=== PATIENT | male | born 1970 | race Caucasian/White ===

== ENCOUNTER 2022-12-03 15:40 | Emergency (ER) | payer OTHER, SELFPAY ==
[2022-12-03 15:44] VITALS: BP 116/66; PULSE 98; RESP 16; TEMP 36.9; O2SAT 99
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
== END 2022-12-03 18:15 | disposition home or self-care (01) ==
PROVIDERS: Emergency Provider Nurse Practitioner Acute Care
DX: S81.011A Laceration without foreign body, right knee, initial encounter (principal); V19.9XXA Pedal cyclist (driver) (passenger) injured in unspecified traffic accident, initial encounter
CPT/HCPCS: 12001; 90471